=== PATIENT | female | born 1945 | race African-American/Black ===

== ENCOUNTER → 2016-08-26 | Outpatient (CLI) | payer MEDICARE ==
--- NOTE | ~2016-08-26 | EKG ---
PATIENT: CLARISA PIRES UNIT #: [id number] Ventricular Rate: 75 BPM Atrial Rate: 75 BPM P-R Interval: 138 ms QRS Duration: 76 ms Q-T Interval: 414 ms QTC Calculation(Bezet): 462 ms P [place]: 72 degrees Calculated R [place]: 89 degrees Calculated T [place]: 60 degrees Diagnosis Line: Normal sinus rhythm Diagnosis Line: Low voltage QRS Diagnosis Line: Cannot rule out Septal infarct , age undetermined Diagnosis Line: Borderline ECG Diagnosis Line: No previous ECGs available Diagnosis Line: Confirmed by RUBEN SAL MD ([id number]) on 08/26/2016 Diagnosis Line: 4:18:00 PM INTERPRETING MD: JONELLE VASQUEZ
[2016-08-26 15:14] LABS: HEMATOCRIT 35.5 % (35.0-45.0); HEMOGLOBIN 11.7 gm/dL (12.0-16.0); MEAN CELL VOLUME 87.4 FL (83-96); MEAN CORPUSCULAR HEMOGLOBIN 28.8 PG (28-34); MEAN CORPUSCULAR HGB CONC 32.9 g/dL (30-36); MEAN PLATELET VOLUME 8.6 FL (6.5-11.5); RED BLOOD COUNT 4.06 X10e (3.90-5.30); RED CELL DISTRIBUTION WIDTH 13.9 % (11.0-15.5)
[2016-08-26 15:35] LABS: BLOOD UREA NITROGEN 20 mg/dL (9-23); BUN/CREATININE RATIO 22.22; CALCIUM SERUM 8.9 mg/dL (8.4-10.2); CARBON DIOXIDE 28 mmol/L (22-31); CHLORIDE 107 mmol/L (100-111); CREATININE SERUM 0.9 mg/dL (0.6-1.4); GLOM FILT RATE Estimated ABOVE60 mL/min (>60); GLUCOSE FASTING 105 mg/dL (70-110); POTASSIUM 3.7 mmol/L (3.5-5.1); SODIUM 138 mmol/L (135-145)
== END | disposition home or self-care (01) ==
LOC: CEKG 14:51
PROVIDERS: Podiatrist
DX: Z01.818 Encounter for other preprocedural examination (principal); M20.42 Other hammer toe(s) (acquired), left foot; I10 Essential (primary) hypertension
CPT/HCPCS: 36415; 80048; 85027; 93005

== ENCOUNTER → 2016-10-15 | Outpatient (CLI) | payer MEDICARE ==
--- NOTE | ~2016-10-15 | US128 ---
[id number] [facility] [address] [place], [place] [address] [id number] O MR#: [id number] Acc #: [id number] NAME: CLARISA PIRES : 1945 SEX: F STUDY DATE/TIME: 10/15/2016 13:35 UNIT: CGUS ROOM: STUDY DESCRIPTION: Thyroid Attending Physician: Geneva Pace M.D. Referring Physician: Geneva Pace M.D. Ordering Physician: Geneva Pace M.D. Primary Care Physician: Cholo Gordillo M.D. MEDICAL IMAGING REPORT This report is preliminary unless electronic signature is present EXAM Ultrasound of the thyroid gland INDICATION Enlarged thyroid gland which was identified on a physical exam 2 weeks ago. TECHNIQUE Davis-scale and color Doppler sonographic images were obtained through the thyroid gland. FINDINGS Right lobe of the thyroid gland measures 2.1 x 4.7 x 2.1 cm. Left lobe measures 2.1 x 4.2 x 1.5 cm. Overall, thyroid gland is heterogeneous in echotexture. There is a dominant solid nodule identified within the inferior pole of the right lobe of the thyroid gland which measures 2.5 x 2.1 x 2.5 cm. It is hypervascular. Within the superior pole of the right lobe of the thyroid gland, there is a hypoechoic nodule measuring 9 x 6 x 8 mm. An additional nodule is seen inferior to it also hypoechoic measuring 5 x 6 x 4 mm. Within the left lobe of the thyroid gland, an additional large nodule is seen measuring 2.0 x 1.1 x 1.4 cm. Again, it is relatively hypervascular. A second nodule is seen within the superior pole of the left lobe of the thyroid gland measuring 1.6 x 0.8 x 1.5 cm and immediately adjacent to the dominant nodule within the left lobe of the thyroid gland there is a 1.1 x 0.7 x 1.1 cm nodule. Patient also appears to have a cyst within the left lobe of the thyroid gland. IMPRESSION Multiple thyroid nodules. 3 of these do meet size criteria for percutaneous sampling and this is recommended. 1 of these is seen within the inferior pole of the right lobe of the thyroid gland while the other 2 are identified on the left. Patient has several other solid nodules within the thyroid gland. These do not meet size criteria for percutaneous sampling. I would suggest short-term sonographic follow up in 6 months. Dictated by... Preethi Bates M.D. THIS IS AN ELECTRONICALLY VERIFIED REPORT Preethi Bates M.D. at 10/16/2016 3:29 PM JENELLE/panchito TD: 10/16/2016 14:19 JOB #: [id number] MEDICAL IMAGING REPORT Page 1 of 1 COPY
== END | disposition home or self-care (01) ==
LOC: CGUS 13:05
DX: E04.1 Nontoxic single thyroid nodule (principal); E04.2 Nontoxic multinodular goiter
CPT/HCPCS: 76536

== ENCOUNTER → 2016-11-26 | Outpatient (CLI) | payer MEDICARE ==
--- NOTE | ~2016-11-26 | XA230 ---
[facility] A Service of [facility] & [facility] RADIOLOGY TEXT RESULTS PATIENT: CLARISA PIRES RENE LOCATION: [facility] : [birth year] UNIT #: [id number] AGE: [address]: Geneva Pace MD SEX: F ORDER DR: [id number] [facility]. [place], [place] [address] [id number] O MR#: [id number] Acc #: [id number] NAME: CLARISA PIRES RENE : 1945 SEX: F STUDY DATE/TIME: 11/26/2016 13:39 UNIT: [facility] ROOM: STUDY DESCRIPTION: XA FNA Attending Physician: Geneva Pace M.D. Referring Physician: Geneva Pace M.D. Ordering Physician: Geneva Pace M.D. Primary Care Physician: Cholo Gordillo M.D. MEDICAL IMAGING REPORT This report is preliminary unless electronic signature is present EXAM Thyroid FNA. HISTORY Ms. Pires is a 70-year-old lady who was noted to have multiple bilateral thyroid nodules 3 of which met size criteria for percutaneous sampling 1 within the right lobe and 2 within the left lobe. She was subsequently referred for biopsy. PROCEDURE The risks, benefits, and alternatives to the procedure were explained to the patient, and signed, informed consent was obtained. She was prepped and draped in the usual sterile fashion. A sterile probe cover was applied to the ultrasound probe and sterile gel was used during procedure. I performed a preliminary ultrasound of the thyroid gland. The patient was again noted to have a dominant nodule within the right lobe of the thyroid gland. The more inferiorly located nodule within the left lobe of the thyroid gland was seen. However the more superiorly located 1 was really not well visualized. Potentially this may be related to the ultrasound equipment, quality and patient positioning. Permanent images were saved. Skin and subcutaneous tissues overlying the patient's inferior pole left thyroid nodule were anesthetized with buffered lidocaine and a total of 3 separate passes were made into the lesion under direct sterile sonographic guidance. Specimens were given to the chief medical technologist who confirmed that an adequate specimen had been obtained. At this point I turned my attention to the large right thyroid nodule. Again, skin and subcutaneous tissues were anesthetized with buffered lidocaine. A total of 4 separate passes were made into the lesion under direct sterile sonographic guidance using 25-gauge needles. Again, specimens were given to a chief medical technologist and she confirmed an adequate specimen had been obtained. Manual pressure was applied. Hemostasis was obtained. [facility] A Service of [facility] RADIOLOGY TEXT RESULTS PATIENT: CLARISA PIRES RENE LOCATION: [facility] : [birth year] UNIT #: [id number] AGE: [address]: Geneva Pace MD SEX: F ORDER DR: VICKEY Technically successful bilateral thyroid FNA as noted above. Please note a more superiorly located nodule within the superior pole of the left lobe of the thyroid gland was initially scheduled to be biopsied. However, this was very difficult to identify on today's examination. This patient has multiple additional thyroid nodules within both lobes of the thyroid gland and, as such, I would suggest continued sonographic followup. Dictated by... Preethi Bates M.D. THIS IS AN ELECTRONICALLY VERIFIED REPORT Preethi Bates M.D. at 11/30/2016 3:28 PM AFF/bd TD: 11/27/2016 09:36 JOB #: [id number] MEDICAL IMAGING REPORT Page 1 of 1 COPY
== END | disposition home or self-care (01) ==
LOC: CIVR 08:00
DX: E04.2 Nontoxic multinodular goiter (principal); J33.0 Polyp of nasal cavity; J30.9 Allergic rhinitis, unspecified
CPT/HCPCS: 76942; 88173; 88305